=== PATIENT | male | born 1945 | race Caucasian/White ===

== ENCOUNTER 2024-04-10 08:21 | Inpatient (IN) | payer MEDICARE, OTHER ==
[~2024-04-10] VITALS: Ht 190.5 cm; Wt 109.9 kg
--- NOTE | 2024-04-10 08:43 | ED.PDOC ---
HPI Comments 78 year old male SAVANAH presents to the ED with chief complaint of back pain and leg swelling. Patient reports that he has been experiencing worsening back pain for the past 4 weeks along with associated bilateral legs swelling and left leg redness. Patient denies any N/V/D, chest pain, SOB, dizziness, or headache. Time Seen by MD: 08:39 Reviewed Notes: Nurses Notes, Dock Worker Notes, Medications, Allergies Allergies: Coded Allergies: NO KNOWN ALLERGIES (Unverified , 04/10/24) Information Source: Patient Mode of Arrival: EMS Severity: Moderate Timing: Weeks Duration: Since onset Prehospital treatment: None Onset: At Rest Cardiac Risk Factors: HTN PE Risk Factors: None History of: IN Associated Signs and Symptoms: Calf Swelling, Back Pain Past Medical History PAST MEDICAL HISTORY: CHF, HTN, IN Surgical History: Hernia Repair, Pacemaker Family History Family History: Reviewed,noncontributory to illness Social History Smoker: Non-Smoker Alcohol: Denies ETOH Use Drugs: Denies Drug Use Lives In: Home Constitutional: denies: chills, diaphoresis, fatigue, fever, malaise, sweats, weakness, others EENTM: denies: blurred vision, double vision, ear bleeding, ear discharge, ear drainage, ear pain, ear ringing, eye pain, eye redness, hearing loss, mouth pain, mouth swelling, nasal discharge, nose bleeding, nose congestion, nose pain, photophobia, tearing, throat pain, throat swelling, voice changes, others Respiratory: denies: cough, hemoptysis, orthopnea, SOB at rest, shortness of breath, SOB with excertion, stridor, wheezing, others Cardiovascular: reports: edema; denies: chest pain, dizzy spells, diaphoresis, Dyspnea on exertion, irregular heart beat, left arm pain, lightheadedness, palpitations, PND, syncope, others Gastrointestinal: denies: abdomen distended, abdominal pain, blood streaked bowels, constipated, diarrhea, dysphagia, difficulty swallowing, hematemesis, melena, nausea, poor appetite, poor fluid intake, rectal bleeding, rectal pain, vomiting, others Genitourinary: denies: burning, dysuria, flank pain, frequency, hematuria, incontinence, penile discharge, penile sore, pain, testicle pain, testicle swelling, urgency, others Neurological: denies: dizziness, fainting, headache, left sided numbness, left sided weakness, numbness, paresthesia, pre-existing deficit, right sided numbness, right sided weakness, seizure, speech problems, tingling, tremors, weakness, others Musculoskeletal: reports: back pain; denies: gout, joint pain, joint swelling, muscle pain, muscle stiffness, neck pain, others Integumetry: denies: bruises, change in color, change in hair/nails, dryness, laceration, lesions, lumps, rash, wounds, others Allergic/Immunocompromised: denies: Difficulty Healing, Frequent Infections, Hives, Itching, others Hematologic/Lymphatic: denies: anemia, blood clots, easy bleeding, easy bruising, swollen glands, others Endocrine: denies: excessive hunger, excessive sweating, excessive thirst, excessive urination, flushing, intolerance to cold, intolerance to heat, unexplained weight gain, unexplained weight loss, others Psychiatric: denies: anxiety, bipolar disorder, depression, hopeless, panic disorder, schizophrenia, sleepless, suicidal, others All Other Systems: Reviewed and Negative Physical Exam General Appearance: Moderate Distress, Normal HEENT: Normal ENT Inspection, PERRL/EOMI Neck: Full Range of Motion, Non-Tender, Normal, Normal Inspection Respiratory: Chest Non-Tender, Lungs Clear, No Accessory Muscle Use, No Respir atory Distress, Normal Breath Sounds Cardiovascular: No Edema, No JVD, No Murmur, No Gallop, Normal Peripheral Pulses, Regular Rate/Rhythm Breast Exam: Deferred Gastrointestinal: No Organomegaly, Non Tender, No Pulsatile Mass, Normal Bowel Sounds, Soft Genitalia: Deferred Pelvic: Deferred Rectal: Deferred Extremities: No calf tenderness, Normal capillary refill, Non-tender, Pedal edema, Swelling (Bilateral lower extremity) Musculoskeletal : Apperance: Normal Neurologic: Alert, billboard erector II-XII nml as Tested, No Motor Deficits, Normal Affect, Normal Mood, No Sensory Deficits Cerebellar Function: NOT DONE Reflexes: NOT DONE Skin: Dry, Normal Color, Warm Peripheral Pulses: 3+ Radial (R), 3+ Radial (L) Lymphatic: No Adenopathy Was a procedure done? Was a procedure done?: No CP Differential Dx Differential Diagnosis: A-fib, A-Flutter, Angina, Anxiety / Panic Attack, Atrial Dysrhythmia, Electrolyte Disorder X-Ray, Labs, Meds, VS Vital Signs Date Time Temp Pulse Resp B/P (MAP) Pulse Ox O2 Delivery O2 Flow Rate FiO2 04/10/24 12:00 57 20 126/59 (81) 99 04/10/24 11:16 60 19 112/64 (80) 99 04/10/24 10:00 61 20 123/60 (81) 99 04/10/24 09:10 61 20 97 Nasal Cannula* 3 32 04/10/24 09:10 98.1 60 20 119/97 (104) 97 98.1 04/10/24 08:28 75 04/10/24 08:25 98.1 43 16 124/58 (80) 94 Lab Test 04/10/24 11:38 04/10/24 10:34 04/10/24 08:57 Range/Units Troponin I High Sensitivity 12 12 11 </=54 ng/L White Blood Count 6.8 4.4-10.8 10^3/uL Red Blood Count 4.30 L 4.5-5.90 10^6/uL Hemoglobin 11.6 L 13.5-17.5 g/dL Hematocrit 34.6 L 41.0-53.0 % Mean Corpuscular Volume 80.4 80.0-100.0 fL Mean Corpuscular Hemoglobin 26.9 L 28.0-32.0 pg Mean Corpuscular Hemoglobin Concent 33.5 32.0-36.0 g/dL Red Cell Distribution Width 18.3 H 11.8-14.3 % Platelet Count 191 140-450 10^3/uL Mean Platelet Volume 7.4 6.9-10.8 fL Neutrophils (%) (Auto) 77.8 37.0-80.0 % Lymphocytes (%) (Auto) 10.7 10.0-50.0 % Monocytes (%) (Auto) 10.8 0.0-12.0 % Eosinophils (%) (Auto) 0.3 0.0-7.0 % Basophils (%) (Auto) 0.4 0.0-2.0 % Neutrophils # (Auto) 5.3 1.6-8.6 10 ^3/uL Lymphocytes # (Auto) 0.7 0.4-5.4 10 ^3/uL Monocytes # (Auto) 0.7 0-1.3 10 ^3/uL Eosinophils # (Auto) 0 0-0.8 10 ^3/uL Basophils # (Auto) 0 0-0.2 10 ^3/uL Nucleated Red Blood Cells 0.2 % Sodium Level 134 L 136-145 mmol/L Potassium Level 4.0 3.5-5.1 mmol/L Chloride Level 99 98-107 mmol/L Carbon Dioxide Level 28 20-31 mmol/L Anion Gap 7 5-15 Blood Urea Nitrogen 20 9-23 mg/dL Creatinine 0.82 0.700-1.30 mg/dL Glomerular Filtration Rate Calc 89 >90 mL/min BUN/Creatinine Ratio 24.4 H 10.0-20.0 Serum Glucose 96 74-106 mg/dL Calcium Level 9.2 8.7-10.4 mg/dL B-Type Natriuretic Peptide 115.42 0-100 pg/mL Chest XR: FINDINGS: Lines and Tubes: Cardiac pacemaker projects over the right chest wall. Lungs: Diffuse interstitial opacities. Pleura: Trace right pleural effusion. No pneumothorax. Cardiomediastinal contours: Unremarkable Bones: No acute osseous abnormality. IMPRESSION: Findings suggestive of pulmonary vascular congestion. Trace right pleural effusion. Patient alert. Came in because of shortness a breath. Bilateral lower extremity swelling. Was given Lasix pain Chest x-ray reviewed does show congestion. BNP slightly elevated. Possible cellulitis. Echocardiogram. Stress test. Possible need angiogram. WBC within normal limits. Blood pressure within normal limits. EKG reviewed does not show any acute changes. Reviewed his history. Explained to the patient. Continue cardiac monitoring. Images Reviewed?: Images reviewed and evaluated by me Time of 1ST Reevaluation: 09:39 Reevaluation 1ST: Unchanged Patient Education/Counseling: Diagnosis, Treatment Family Education/Counseling: No Family Present Departure 1 Departure Time of Disposition: 13:15 Impression: Primary Impression: CHF (congestive heart failure) Qualified Codes: I50.43 - Acute on chronic combined systolic (congestive) and diastolic (congestive) heart failure Additional Impression: Pneumonitis Disposition: ADMITTED INPATIENT Admit to: Med Surg Condition: Guarded Critical Care Note Critical Care Time?: Yes (90 min-critical care time only) Stability Stability form required: No Heart Score Heart Score: Heart Score Response (Comments) Value History Highly Suspicious 2 EKG Repolarization Disturb 1 Age >65 2 Risk Factors >3 or Hx ASHD 2 Troponin Normal limit 0 Total 7 I personally scribed for HAMMAD HILL MD ([email or web address]) on 04/10/24 at 08:43. Electronically submitted by Gurmeet Del Valle ([email or web address]). I personally scribed for HAMMAD HILL MD ([email or web address]) on 04/10/24 at 08:44. Electronically submitted by Gurmeet Del Valle ([email or web address]). I personally scribed for HAMMAD HILL MD ([email or web address]) on 04/10/24 at 10:30. Electronically submitted by Gurmeet Del Valle ([email or web address]). HAMMAD HILL MD Apr 10, 2024 08:43
[2024-04-10 09:10] VITALS: PULSE 61; RESP 20; O2SAT 97
--- NOTE | 2024-04-10 09:11 | DVH ---
EXAM: XY CHEST PORTABLE Indication:sob Technique: Single frontal view of the chest was obtained Comparison: None FINDINGS: Lines and Tubes: Cardiac pacemaker projects over the right chest wall. Lungs: Diffuse interstitial opacities. Pleura: Trace right pleural effusion. No pneumothorax. Cardiomediastinal contours: Unremarkable Bones: No acute osseous abnormality. IMPRESSION: Findings suggestive of pulmonary vascular congestion. Trace right pleural effusion.
[2024-04-10 09:45] LABS: Basophils # (auto) 0 10 ^3/uL (0-0.2); Eosinophils # (auto) 0 10 ^3/uL (0-0.8); Hemoglobin 11.6 g/dL (13.5-17.5); Lymphocytes # (auto) 0.7 10 ^3/uL (0.4-5.4); Nucleated Red Blood Cells % 0.2 %
[2024-04-10 09:48] LABS: Basophils % (auto) 0.4 % (0.0-2.0); Eosinophils % (auto) 0.3 % (0.0-7.0); Hematocrit 34.6 % (41.0-53.0); Lymphocytes % (auto) 10.7 % (10.0-50.0); Mean Corpuscular Hemoglobin 26.9 pg (28.0-32.0); Mean Corpuscular Hgb Conc. 33.5 g/dL (32.0-36.0); Mean Corpuscular Volume 80.4 fL (80.0-100.0); Monocytes # (auto) 0.7 10 ^3/uL (0-1.3); Monocytes % (auto) 10.8 % (0.0-12.0); Neutrophils # (auto) 5.3 10 ^3/uL (1.6-8.6); Neutrophils % (auto) 77.8 % (37.0-80.0); Platelet Count (auto) 191 10^3/uL (140-450); Red Cell Distribution Width 18.3 % (11.8-14.3); White Blood Cell 6.8 10^3/uL (4.4-10.8)
[2024-04-10 09:49] LABS: Chloride 99 mmol/L (98-107); Sodium 134 mmol/L (136-145)
[2024-04-10 09:50] LABS: Anion Gap 7 (5-15); Calcium 9.2 mg/dL (8.7-10.4); Carbon Dioxide 28 mmol/L (20-31)
[2024-04-10 09:55] LABS: BUN/Creatinine Ratio 24.4 (10.0-20.0); Blood Urea Nitrogen 20 mg/dL (9-23); Glucose 96 mg/dL (74-106)
[2024-04-10] MEDS ORDERED: ONDANSETRON HCL 4 MG/2 ML VIAL IV PRN (13:45)
[2024-04-10] MEDS ORDERED: NITROGLYCERIN 0.4 MG SL TAB SL PRN (13:45)
[2024-04-10] MEDS ORDERED: MORPHINE SULFATE INJ 2 MG/ml SYRG IV PRN (13:45)
[2024-04-10] MEDS ORDERED: METO25TA93 PO (13:48)
[2024-04-10] MEDS ORDERED: RIVA20TA PO (13:48)
[2024-04-10] MEDS ORDERED: CLOP75TA70 PO (13:48)
[2024-04-10] MEDS ORDERED: ATOR10TA52 PO (13:48)
[2024-04-10] MEDS: FUROSEMIDE 40 MG/4 ML VIAL IV ONE (14:15)
[2024-04-10] MEDS: levoFLOXacin 500MG 100 ML IV ONE (14:16)
--- NOTE | 2024-04-10 14:44 | DVH ---
Bilateral lower extremity venous duplex Clinical History: Bilateral lower extremity swelling and redness Comparison: None Technique: Duplex Doppler evaluation of the deep venous systems of both lower extremities from the bilateral com mon femoral veins to the popliteal veins including color Doppler and spectral/pulsed waveform analysi s was performed. Findings: RIGHT SIDE: The common femoral vein demonstrates appropriate compressibility and waveform variability . There is compressibility/patency of the great saphenous vein at the proximal thigh . The femoral vein demonstrates appropriate compressibility and waveform variability . The deep femoral vein demonstrates appropriate compressibility and waveform variability . The popliteal vein demonstrates appropriate compressibility and waveform variability . There is normal compressibility at the tibioperoneal trunk. LEFT SIDE: The common femoral vein demonstrates appropriate compressibility and waveform variability . There is compressibility/patency of the great saphenous vein at the proximal thigh . The femoral vein demonstrates appropriate compressibility and waveform variability . The deep femoral vein demonstrates appropriate compressibility and waveform variability . The popliteal vein demonstrates appropriate compressibility and waveform variability . There is normal compressibility at the tibioperoneal trunk. Impression: No right or left femoropopliteal venous thrombosis.
--- NOTE | 2024-04-10 15:02 | DVHHP2 ---
History of Present Illness Reason for Visit: bilateral lower extremity swelling History of Present Illness 78-year-old male brought in by ambulance presented to the ED with chief complaint of back pain and bilateral lower extremity redness and swelling. Patient reports that he had been experiencing worsening back pain for the last 4 weeks associated with bilateral lower leg swelling +2 pitting edema and left leg redness. Patient states he has discussed the back pain with his primary care provider, who ordered recent imaging, and presented patient with a list of possible plans of care, patient states he does not remember what the plans were, however he states his primary care provider gave him pain medications and they scheduled a follow up appointment. Patient does not have any saddle anesthesia. Lower extremity ultrasound pending. Lasix given. Cardiology consult placed. Patient denies chest pain, headache, dizziness, diaphoresis, shortness of breat h, abdominal pain, no nausea, vomiting, fever, or chills endorsed by the patient. Patient was admitted for further evaluation medical management. Past Medical History CHF, HTN, NC Past Surgical History Hernia Repair, Pacemaker Family History Reviewed noncontributory to the management of this case Smoke: No ALCOHOL: none Drugs: None Lives: with Family Review of Systems Constitutional: No: Fever, Chills, Sweats, Weakness, Malaise, Other Eyes: No: Pain, Vision change, Conjunctivae inflammation, Eyelid inflammation, Other, Redness ENT: No: Ear pain, Ear discharge, Nose pain, Nose discharge, Nose congestion, Mouth pain, Mouth swelling, Throat pain, Throat swelling, Other Respiratory: Shortness of breath; No: Cough, Dry, SOB with excertion, Wheezing, Hemoptysis, Pleuritic Pain, Sputum, Wheezing, Other Cardiovascular: Edema (+2 pitting edema bilateral lower extremities); No: Chest Pain, Palpitations, Orthopnea, Paroxysmal Noc. Dyspnea, Lt Headedness, Other Gastrointestinal: No: Nausea, Vomiting, Abdominal Pain, Diarrhea, Constipation, Melena, Hematochezia, Other Genitourinary: No Dysuria, No Frequency, No Incontinence, No Hematuria, No Retention, No Other Musculoskeletal: leg pain (Left leg pain); No: other, neck pain, shoulder pain, arm pain, back pain, hand pain, foot pain Skin: Other (Redness to left lower extremity); No: Rash, Lesions, Jaundice, Bruising Neurological: No: Weakness, Numbness, Incoordination, Change in speech, Confusion, Seizures, Other Allergies: Coded Allergies: NO KNOWN ALLERGIES (Unverified , 04/10/24) Medications Current Medications Medications Dose Ordered Sig/Thierry Route Start Time Stop Time Status Last Admin Dose Admin Acetaminophen/ Hydrocodone Bitart 1 tab Q4HP PRN PO 04/10/24 13:45 UNV Ondansetron HCl 4 mg Q4HP PRN IV 04/10/24 13:45 UNV Morphine Sulfate 2 mg Q4HPRN PRN IV 04/10/24 13:45 UNV Nitroglycerin 0.4 mg Q5MINP PRN SL 04/10/24 13:45 UNV Morphine Sulfate 2 mg Q30M PRN IV 04/10/24 13:45 UNV Furosemide 20 mg BIDD IV 04/10/24 18:00 UNV Clopidogrel Bisulfate 75 mg DAILY PO 04/11/24 10:00 UNV Rivaroxaban 20 mg DAILY PO 04/11/24 10:00 UNV Atorvastatin Calcium 10 mg HS PO 04/10/24 22:00 UNV Metoprolol Succinate 12.5 mg DAILY PO 04/11/24 10:00 UNV Levofloxacin/ Dextrose 100 ml @ 100 mls/hr DAILY IV 04/11/24 10:00 UNV Potassium Chloride 20 meq DAILY PO 04/11/24 10:00 UNV Exam Vital Signs Vital Signs Date Time Temp Pulse Resp B/P (MAP) Pulse Ox O2 Delivery O2 Flow Rate FiO2 04/10/24 14:15 141/68 04/10/24 12:00 57 20 99 04/10/24 09:10 Nasal Cannula* 3 32 04/10/24 09:10 98.1 98.1 General Appearance: Alert, Oriented X3, Cooperative, No acute distress HEENT: Atraumatic, PERRLA, EOMI, Mucous membr. moist/pink Respiratory: Clear to auscultation, Normal air movement Cardiovascular: Normal S1, Normal S2, No murmurs Abdominal: Normal bowel sounds, Soft, No tenderness, No hepatospenomegaly, No masses Extremities: No clubbing, No cyanosis, No edema, Normal pulses, No tenderness/swelling Skin: No rashes, No breakdown, No significant lesion Neuro: Normal gait, Normal speech, Strength at 5/5 X4 ext, Normal tone, Sensation intact, Cranial nerves 3-12 NL, Reflexes 2+ Psych/Mental Status: Mental status NL, Mood NL Labs/Xrays Labs, imaging and ED notes reviewed Labs Test 04/10/24 11:38 04/10/24 08:57 Range/Units Troponin I High Sensitivity 12 </=54 ng/L White Blood Count 6.8 4.4-10.8 10^3/uL Red Blood Count 4.30 L 4.5-5.90 10^6/uL Hemoglobin 11.6 L 13.5-17.5 g/dL Hematocrit 34.6 L 41.0-53.0 % Mean Corpuscular Volume 80.4 80.0-100.0 fL Mean Corpuscular Hemoglobin 26.9 L 28.0-32.0 pg Mean Corpuscular Hemoglobin Concent 33.5 32.0-36.0 g/dL Red Cell Distribution Width 18.3 H 11.8-14.3 % Platelet Count 191 140-450 10^3/uL Mean Platelet Volume 7.4 6.9-10.8 fL Neutrophils (%) (Auto) 77.8 37.0-80.0 % Lymphocytes (%) (Auto) 10.7 10.0-50.0 % Monocytes (%) (Auto) 10.8 0.0-12.0 % Eosinophils (%) (Auto) 0.3 0.0-7.0 % Basophils (%) (Auto) 0.4 0.0-2.0 % Neutrophils # (Auto) 5.3 1.6-8.6 10 ^3/uL Lymphocytes # (Auto) 0.7 0.4-5.4 10 ^3/uL Monocytes # (Auto) 0.7 0-1.3 10 ^3/uL Eosinophils # (Auto) 0 0-0.8 10 ^3/uL Basophils # (Auto) 0 0-0.2 10 ^3/uL Nucleated Red Blood Cells 0.2 % Sodium Level 134 L 136-145 mmol/L Potassium Level 4.0 3.5-5.1 mmol/L Chloride Level 99 98-107 mmol/L Carbon Dioxide Level 28 20-31 mmol/L Anion Gap 7 5-15 Blood Urea Nitrogen 20 9-23 mg/dL Creatinine 0.82 0.700-1.30 mg/dL Glomerular Filtration Rate Calc 89 >90 mL/min BUN/Creatinine Ratio 24.4 H 10.0-20.0 Serum Glucose 96 74-106 mg/dL Calcium Level 9.2 8.7-10.4 mg/dL B-Type Natriuretic Peptide 115.42 0-100 pg/mL Assessment/Plan Assessment/Plan CHF exacerbation Admit to telemetry Lasix given Serial troponins 11, 12, 12 BNP 115 Monitor fluid balance/urine output Monitor a.m. labs Left lower extremity cellulitis Started on antibiotics Acute hypoxic respiratory failure On 2 L nasal cannula Supplemental oxygen Titrate to keep greater than 92% SpO2 Chest x-ray showed pulmonary vascular congestion Chronic back pain Pain medications p.r.n. Chronic AFib Continue home medications Chronic hypertension Continue home meds FEN/PPX GI prophylaxis not indicated VTE prophylaxis-on Plavix and Xarelto Cardiac diet Plan discussed with: Patient My Orders Orders - JOSE OG Procedure Category Date Status Time Admit ADMIT 04/10/24 Transmitted 13:40 Code Status CODE 04/10/24 Transmitted 13:40 Vital Signs [facility] 04/10/24 In Process 13:40 Review Orders With [facility] 04/10/24 In Process Adm. 13:40 Bedside Commode [facility] 04/10/24 In Process 13:40 Notify Of Changes [facility] 04/10/24 In Process From Base 13:40 Advance Directive [facility] 04/10/24 In Process 13:40 Basic Metabolic Panel LAB 04/11/24 Verified 04:00 Complete Blood Count LAB 04/11/24 Verified 04:00 Patient Condition ORDERS 04/10/24 Transmitted 13:40 Allergies [facility] 04/10/24 In Process 13:40 Hydrocodone-Acet [facility] 04/10/24 Logged 5/325mg Tab ([place] 13:45 Ondansetron Hcl PHA 04/10/24 Logged (Zofran) 13:45 Morphine Sulfate PHA 04/10/24 Logged Injection 13:45 Cardiac DIET 04/10/24 Transmitted Diet-2gna,Lofat,Lochol Dinner Melatonin (Melatonin) [facility] 04/10/24 Logged 22:00 Nitroglycerin PHA 04/10/24 Logged Sublingual (Ntrostat 13:45 Morphine Sulfate PHA 04/10/24 Logged Injection 13:45 Stat Ekg For Chest [facility] 04/10/24 In Process Pain 13:40 Notify Of Changes [facility] 04/10/24 In Process From Base 13:40 Ice Cream Truck Driver For [facility] 04/10/24 In Process 24 Hours 13:40 Emergency Dysrhythmia [facility] 04/10/24 In Process Protocol 13:40 Rhythm Strips Once [facility] 04/10/24 In Process Every Shift 13:40 Oxygen By Nasal RT 04/10/24 Transmitted Cannula 13:40 Furosemide Injection [facility] 04/10/24 Logged (Lasix Injection) 18:00 Clopidogrel Bisulfate [facility] 04/11/24 Logged (Plavix) 10:00 Rivaroxaban Tablet [facility] 04/11/24 Logged (Xarelto Tablet) 10:00 Atorvastatin (Lipitor) [facility] 04/10/24 Logged 22:00 Metoprolol Xl [facility] 04/11/24 Logged Succinate (Toprol Xl) 10:00 Levofloxacin 500mg [facility] 04/11/24 Logged (Levaquin 500mg/ 100m 10:00 Potassium Er Tablet [facility] 04/11/24 Logged (Klor-Con Tablet) 10:00 Bilat Lower Dvt 04/10/24 Resulted 13:55 Date of Service: Apr 10, 2024 Billing Provider: JOSE OG Common Visit Codes: [id number] INP/OBS CARE (HIGH) JOSE OG Apr 10, 2024 15:02
[2024-04-10 15:20] LABS: Urine Bacteria None Seen /hpf (None Seen)
[2024-04-10] MEDS: MORPHINE SULFATE INJ 2 MG/ml SYRG IV PRN (15:23)
[2024-04-10 15:36] LABS: Urine Blood 1+ /uL (Negative); Urine Clarity Clear (Clear); Urine Color Yellow (Yellow); Urine Mucus FEW (None Seen); Urine Protein, UAD Negative (Negative); Urine Specific Gravity 1.015 (1.001-1.035); Urine Urobilinogen 4 mg/dL (Negative); Urine WBC 1 /hpf (0 - 3)
[2024-04-10] MEDS: HYDROcodone-ACET 5/325MG TAB PO PRN (16:02)
[2024-04-10] MEDS: FUROSEMIDE 20 MG/2 ML VIAL IV SCH (18:08)
--- NOTE | 2024-04-10 19:00 | ECG ---
[facility] Test Date: 2024-04-10 Test Time: 08:26:24 Pat Name: RADAMES NOLAND Department: ED Room: [address] [place] [address] Gender: M Chaplaincy: MAHI : 1945 Requested By: HAMMAD HILL Order Number: [id number] Reading MD: Measurements Intervals [place] Rate: 60 P: 196 WV: 193 QRS: 234 QRSD: 167 T: 171 QT: 517 QTc: 517 Interpretive Statements Atrial-sensed ventricular-paced rhythm No further analysis attempted due to paced rhythm Please click the below link to view image of tracing.
[2024-04-10] MEDS: MELATONIN 5 MG TAB PO ONE (22:00)
[2024-04-10 22:27] VITALS: BP 106/50; PULSE 103; PULSE 90; RESP 18; TEMP 98.3; O2SAT 93
[2024-04-10] MEDS ORDERED: FURO40TA4 PO (23:07)
[2024-04-10] MEDS: ATORVASTATIN 20 MG TAB PO SCH (23:14)
[2024-04-11] VITALS (7 sets, daily range): BP systolic 89–109; BP diastolic 50–59; PULSE 60–93; RESP 18–20; TEMP 97.2–98.9; O2SAT 91–96
[2024-04-11 06:38] LABS: Basophils # (auto) 0 10 ^3/uL (0-0.2); Basophils % (auto) 0.4 % (0.0-2.0); Eosinophils # (auto) 0 10 ^3/uL (0-0.8); Eosinophils % (auto) 0.3 % (0.0-7.0); Hemoglobin 10.9 g/dL (13.5-17.5); Lymphocytes # (auto) 0.7 10 ^3/uL (0.4-5.4)
[2024-04-11 06:40] LABS: Hematocrit 31.7 % (41.0-53.0); Lymphocytes % (auto) 10.3 % (10.0-50.0); Mean Corpuscular Hemoglobin 27.3 pg (28.0-32.0); Mean Corpuscular Hgb Conc. 34.4 g/dL (32.0-36.0); Mean Corpuscular Volume 79.2 fL (80.0-100.0); Monocytes # (auto) 0.9 10 ^3/uL (0-1.3); Monocytes % (auto) 13.6 % (0.0-12.0); Neutrophils # (auto) 5.1 10 ^3/uL (1.6-8.6); Neutrophils % (auto) 75.4 % (37.0-80.0); Platelet Count (auto) 173 10^3/uL (140-450); Red Blood Cells 4.01 10^6/uL (4.5-5.90); Red Cell Distribution Width 18.4 % (11.8-14.3); White Blood Cell 6.8 10^3/uL (4.4-10.8)
[2024-04-11 06:46] LABS: Anion Gap 7 (5-15); Carbon Dioxide 28 mmol/L (20-31); Chloride 99 mmol/L (98-107); Potassium 3.5 mmol/L (3.5-5.1); Sodium 134 mmol/L (136-145)
[2024-04-11 06:52] LABS: BUN/Creatinine Ratio 19.8 (10.0-20.0); Blood Urea Nitrogen 19 mg/dL (9-23); Glucose 117 mg/dL (74-106)
[2024-04-11] MEDS: RIVAROXABAN 20 MG TAB PO SCH (10:14)
[2024-04-11] MEDS: levoFLOXacin 500MG 100 ML IV SCH (10:14)
[2024-04-11] MEDS: CLOPIDOGREL BISULFATE 75 MG TAB PO SCH (10:14)
[2024-04-11] MEDS: POTASSIUM CHL 20 Meq TABLET PO SCH (10:15)
[2024-04-11] MEDS: METOPROLOL SUCCINATE XL 50 MG TAB PO SCH (10:16)
--- NOTE | 2024-04-11 17:30 | DVHPN2 ---
Subjective concerned about redness around his ankle- started after mild trauma 3 weeks back Changes from previous H/P or p: No Changes Eyes: No Pain, No Vision change, No Conjunctivae inflammation, No Eyelid inflammation, No Other, No Redness ENT: No Ear pain, No Ear discharge, No Nose pain, No Nose discharge, No Nose congestion, No Mouth pain, No Mouth swelling, No Throat pain, No Throat swelling, No Other Cardiovascular: No Chest Pain, No Palpitations, No Orthopnea, No Paroxysmal Noc. Dyspnea; Edema (+2 pitting edema bilateral lower extremities); No Lt Headedness, No Other Respiratory: No Cough, No Dry; Shortness of breath; No SOB with excertion, No Wheezing, No Hemoptysis, No Pleuritic Pain, No Sputum, No Other Gastrointestinal: No Nausea, No Vomiting, No Abdominal Pain, No Diarrhea, No Constipation, No Melena, No Hematochezia, No Other Genitourinary: No Dysuria, No Frequency, No Incontinence, No Hematuria, No Retention, No Other Musculoskeletal: No other, No neck pain, No shoulder pain, No arm pain, No back pain, No hand pain; leg pain (Left leg pain); No foot pain Skin: No Rash, No Lesions, No Jaundice, No Bruising; Other (Redness to left lower extremity) Objective Vitals Vital Signs Date Time Temp Pulse Resp B/P (MAP) Pulse Ox O2 Delivery O2 Flow Rate FiO2 04/11/24 12:00 97.2 68 20 109/54 (72) 95 97.2 04/11/24 08:10 Nasal Cannula* 3 32 Intake/Output Intake and Output 04/11/24 07:00 Intake Total 0 ml Output Total 0 ml Balance 0 ml Intake Oral 0 ml Output Urine Total 0 ml General Appearance: Alert, Oriented X3 HEENT: PERRLA Lungs: Clear to auscultation, Other Cardiovascular: Regular rate, Normal S1, Normal S2 Abdomen: Normal bowel sounds, No hepatospenomegaly Musculoskeletal: Normal sensory function, Normal motor function Extremities: Other (mild edema lower extremities/mild redness around rt ankle) Skin: Breakdown Medications Current Medications Medications Dose Ordered Sig/Thierry Route Start Time Stop Time Status Last Admin Dose Admin Acetaminophen/ Hydrocodone Bitart 1 tab Q4HP PRN PO 04/10/24 13:45 04/10/24 16:02 1 TAB Ondansetron HCl 4 mg Q4HP PRN IV 04/10/24 13:45 Morphine Sulfate 2 mg Q4HPRN PRN IV 04/10/24 13:45 04/10/24 15:23 2 MG Nitroglycerin 0.4 mg Q5MINP PRN SL 04/10/24 13:45 Morphine Sulfate 2 mg Q30M PRN IV 04/10/24 13:45 Furosemide 20 mg BIDD IV 04/10/24 18:00 04/11/24 05:06 20 MG Clopidogrel Bisulfate 75 mg DAILY PO 04/11/24 10:00 04/11/24 10:14 75 MG Rivaroxaban 20 mg DAILY PO 04/11/24 10:00 04/11/24 10:14 20 MG Atorvastatin Calcium 10 mg HS PO 04/10/24 22:00 04/10/24 23:14 10 MG Metoprolol Succinate 12.5 mg DAILY PO 04/11/24 10:00 04/11/24 10:16 12.5 MG Levofloxacin/ Dextrose 100 ml @ 100 mls/hr DAILY IV 04/11/24 10:00 04/11/24 10:14 100 MLS/HR Potassium Chloride 20 meq DAILY PO 04/11/24 10:00 04/11/24 10:15 20 MEQ Laboratory Results Laboratory Tests 04/11/24 05:40 Chemistry Test 04/11/24 05:40 Calcium Level 9.0 mg/dL (8.7-10.4) Urinalysis Test 04/10/24 13:20 Urine Color Yellow (Yellow) Urine Clarity Clear (Clear) Urine pH 5.0 (5.0-9.0) Urine Specific [place] 1.015 (1.001-1.035) Urine Protein Negative (Negative) Urine Ketones Trace (Negative) Urine Blood 1+ /uL (Negative) H Urine Nitrite Negative (Negative) Urine Bilirubin Negative (Negative) Urine Urobilinogen 4 mg/dL (Negative) H Urine Leukocyte Esterase Negative /uL (Negative) Urine RBC 7 /hpf (0 - 3) Urine WBC 1 /hpf (0 - 3) Urine Squamous Epithelial Cells Few /hpf (<5) Urine Bacteria None seen /hpf (None Seen) Urine Mucus Few (None Seen) Urine Glucose Normal mg/dL (Normal) Assessment/Plan Assessment/Plan chf secondary to diastolic dysfn cellulitis lt lower extremity cad- stable custodial use of anticoagulation- pt not clear why but recommended and rx by 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
--- NOTE | 2024-04-11 17:32 | MEDREC ---
[facility] Intervention Section I [facility] Intervention: Review courses of therapy (PATIENT HAS QT PROLONGATION (QTc 517 ON 04/10). FLUOROQUINOLONES (LEVOFLOXACIN) AND MACROLIDES CAN PROLONG THE QT INTERVAL EVEN FURTHER. PLEASE CONSIDER SWITCHING ANTIBIOTIC DEPENDS ON INFECTION TYPES) BILLY KUMAR PHA Apr 11, 2024 17:32
--- NOTE | 2024-04-11 18:14 | DVH ---
CLINICAL INDICATION: trauma at home 3 weeks back TECHNIQUE: 2 radiographic views of the left ankle were obtained. Comparison: None FINDINGS/IMPRESSION: There is no evidence of acute fracture or dislocation. Poor visualization of the talocalcaneal joint. Can not exclude fusion. The alignment is anatomical. There is no radiopaque foreign body.
[2024-04-12 06:59] LABS: Basophils # (auto) 0 10 ^3/uL (0-0.2); Eosinophils # (auto) 0.1 10 ^3/uL (0-0.8); Hemoglobin 10.7 g/dL (13.5-17.5); Lymphocytes # (auto) 0.7 10 ^3/uL (0.4-5.4); Monocytes # (auto) 0.7 10 ^3/uL (0-1.3); Neutrophils # (auto) 4.3 10 ^3/uL (1.6-8.6); Nucleated Red Blood Cells % 0.1 %
[2024-04-12 07:01] LABS: Basophils % (auto) 0.5 % (0.0-2.0); Eosinophils % (auto) 1.1 % (0.0-7.0); Lymphocytes % (auto) 11.4 % (10.0-50.0); Mean Corpuscular Hemoglobin 26.6 pg (28.0-32.0); Mean Corpuscular Hgb Conc. 33.4 g/dL (32.0-36.0); Mean Corpuscular Volume 79.7 fL (80.0-100.0); Monocytes % (auto) 12.4 % (0.0-12.0); Neutrophils % (auto) 74.6 % (37.0-80.0); Platelet Count (auto) 181 10^3/uL (140-450); Red Blood Cells 4.02 10^6/uL (4.5-5.90); Red Cell Distribution Width 18.3 % (11.8-14.3); White Blood Cell 5.7 10^3/uL (4.4-10.8)
[2024-04-12 07:08] LABS: Chloride 98 mmol/L (98-107); Potassium 3.6 mmol/L (3.5-5.1); Sodium 134 mmol/L (136-145)
[2024-04-12 07:09] LABS: Anion Gap 6 (5-15); Calcium 9.1 mg/dL (8.7-10.4); Carbon Dioxide 30 mmol/L (20-31)
[2024-04-12 07:14] LABS: BUN/Creatinine Ratio 24.7 (10.0-20.0); Blood Urea Nitrogen 20 mg/dL (9-23); Glucose 114 mg/dL (74-106)
--- NOTE | 2024-04-12 07:23 | DVH ---
CLINICAL INFORMATION: 78 years old, Male; congestive heart failure. TECHNIQUE: Single AP portable chest radiograph was obtained. COMPARISON: XY CHEST PORTABLE on DOS: 04/10/24 FINDINGS: Small right pleural effusion with overlying atelectasis and/or consolidation, increased compared to t he prior exam. Bilateral perihilar interstitial opacities and prominence of the pulmonary vasculature are increased. Unchanged cardiomegaly. No pneumothorax. No other significant interval change. IMPRESSION: 1. Worsening findings consistent with pulmonary vascular congestion / interstitial pulmonary edema as described above. 2. Worsening small right pleural effusion with overlying atelectasis and/or consolidation.
[2024-04-12 07:29] LABS: Erythrocyte Sedimentation Rate 79 mm/hr (0-20)
[2024-04-12 08:00] VITALS: PULSE 64; PULSE 70
[2024-04-12 09:00] VITALS: BP 100/55; PULSE 70; RESP 16; TEMP 97.5; O2SAT 94
[2024-04-12 13:00] VITALS: BP 100/54; PULSE 73; RESP 17; TEMP 98.1; O2SAT 96
--- NOTE | 2024-04-12 16:11 | DVHDS2 ---
Discharge Summary Date of Admission Apr 10, 2024 at 13:40 Date of Discharge: Apr 12, 2024 Admitting Diagnosis cellulitis lt leg acute on chronic diastolic chf Wounds: lt leg closed superficial blister/from recent trauma/longterm anticoagulation dry guaze dressing applied Labs/Diagnostic Data: Laboratory Results Test 04/12/24 06:17 04/10/24 13:20 04/10/24 11:38 04/10/24 08:57 White Blood Count 5.7 10^3/uL (4.4-10.8) Red Blood Count 4.02 10^6/uL (4.5-5.90) Hemoglobin 10.7 g/dL (13.5-17.5) Hematocrit 32.0 % (41.0-53.0) Mean Corpuscular Volume 79.7 fL (80.0-100.0) Mean Corpuscular Hemoglobin 26.6 pg (28.0-32.0) Mean Corpuscular Hemoglobin Concent 33.4 g/dL (32.0-36.0) Red Cell Distribution Width 18.3 % (11.8-14.3) Platelet Count 181 10^3/uL (140-450) Mean Platelet Volume 7.7 fL (6.9-10.8) Neutrophils (%) (Auto) 74.6 % (37.0-80.0) Lymphocytes (%) (Auto) 11.4 % (10.0-50.0) Monocytes (%) (Auto) 12.4 % (0.0-12.0) Eosinophils (%) (Auto) 1.1 % (0.0-7.0) Basophils (%) (Auto) 0.5 % (0.0-2.0) Neutrophils # (Auto) 4.3 10 ^3/uL (1.6-8.6) Lymphocytes # (Auto) 0.7 10 ^3/uL (0.4-5.4) Monocytes # (Auto) 0.7 10 ^3/uL (0-1.3) Eosinophils # (Auto) 0.1 10 ^3/uL (0-0.8) Basophils # (Auto) 0 10 ^3/uL (0-0.2) Nucleated Red Blood Cells 0.1 % Erythrocyte Sedimentation Rate 79 mm/hr (0-20) Sodium Level 134 mmol/L (136-145) Potassium Level 3.6 mmol/L (3.5-5.1) Chloride Level 98 mmol/L (98-107) Carbon Dioxide Level 30 mmol/L (20-31) Anion Gap 6 (5-15) Blood Urea Nitrogen 20 mg/dL (9-23) Creatinine 0.81 mg/dL (0.700-1.30) Glomerular Filtration Rate Calc 90 mL/min (>90) BUN/Creatinine Ratio 24.7 (10.0-20.0) Serum Glucose 114 mg/dL (74-106) Calcium Level 9.1 mg/dL (8.7-10.4) Urine Color Yellow (Yellow) Urine Clarity Clear (Clear) Urine pH 5.0 (5.0-9.0) Urine Specific [place] 1.015 (1.001-1.035) Urine Protein Negative (Negative) Urine Ketones Trace (Negative) Urine Blood 1+ /uL (Negative) Urine Nitrite Negative (Negative) Urine Bilirubin Negative (Negative) Urine Urobilinogen 4 mg/dL (Negative) Urine Leukocyte Esterase Negative /uL (Negative) Urine RBC 7 /hpf (0 - 3) Urine WBC 1 /hpf (0 - 3) Urine Squamous Epithelial Cells Few /hpf (<5) Urine Bacteria None seen /hpf (None Seen) Urine Mucus Few (None Seen) Urine Glucose Normal mg/dL (Normal) Troponin I High Sensitivity 12 ng/L (</=54) B-Type Natriuretic Peptide 115.42 pg/mL (0-100) Other Laboratory Tests 04/12/24 06:17 Brief Hx & Hospital Course: pt was admitted for chf and cellulitis/pt was treated for both and pt condition improved and pt requested to have echo done as op and f/u with his primary . Consults/Reason for consult nil Operations or Procedures nil Condition at Discharge: Fair Final Diagnosis/Problems List acute on chronic diastolic chf- better pt stated will have echo as op thru his skiver heel tap-had echo 01/17 traumatic blister lt lower leg cellulitis left leg paroxysmal atrial fibrillation htn Discharge Disposition: Home Discharge Instruct/Medications Diet: Cardiac 2g Na,low cholest Diet comment: low salt diet- educated Activity: Light activity Follow Up/Referral: pcp in 1-2 weeks Medications: resume home medications as before has potassium at home(not on reconcile) advised to make sure takes potassium with lasix daily-updated one new rx for antibiotoic sent to pharmacy doxycycline 100 mg twice daily in full stomach for 5 days then stop Discharge Statement: "Patient was advised to return to the ER or call 911 if any headaches, dizziness, shortness of breath, chest pain, abdominal pain, bleeding, fevers, or worsening of medical condition. Patient was counseled about treatment plan, medications, possible side effects, patientverbalized understanding. All questions were answered to the best of my ability. This discharge took greater then 30 minutes in planning, reviewing documentation, counseling the patient, and discussing with other team members." DME: Diagnosis: nil resting pulse ox 93 % on day of discharge ASSESSMENT ASSESSMENT Assessment acute on chronic diastolic chf- better pt stated will have echo as op thru his skiver heel tap-had echo 01/17 traumatic blister lt lower leg cellulitis left leg paroxysmal atrial fibrillation htn Date of Service: Apr 12, 2024 Billing Provider: CLAUDIO KIRKLAND MD Common Visit Codes: 04060-EPZ/OBS DISCH DAY >30min CLAUDIO KIRKLAND MD Apr 12, 2024 16:11
[2024-04-12] MEDS ORDERED: DOXY-286 PO (16:13)
[2024-04-12 17:00] VITALS: BP 122/64; PULSE 92; RESP 18; TEMP 97.4; O2SAT 93
[2024-04-12 17:33] VITALS: BP 122/64; PULSE 92; RESP 18; TEMP 97.4; O2SAT 93
--- NOTE | 2024-04-13 14:09 | ECG ---
[facility] Test Date: 2024-04-10 Test Time: 08:27:01 Pat Name: RADAMES NOLAND Department: ED Room: 0290T A Gender: M Rn Primary Care: MAHI : 1945 Requested By: HAMMAD HILL Order Number: [id number] Reading MD: Measurements Intervals [place] Rate: 75 P: 0 RI: 0 QRS: 23 QRSD: 98 T: -60 QT: 478 QTc: 534 Interpretive Statements Afib/flut and V-paced complexes No further rhythm analysis attempted due to paced rhythm Nonspecific repol abnormality, diffuse leads Prolonged QT interval Please click the below link to view image of tracing.
== END 2024-04-12 18:20 | disposition home or self-care (01) | DRG 602 ==
LOC: EDBD 08:21 → ER 08:21 → TELE 13:40 → TELE-WESTW 21:50
PROVIDERS: ADMIT Registered Nurse General Practice; ATTEND Registered Nurse General Practice
DX: L03.116 Cellulitis of left lower limb (principal); I50.33 Acute on chronic diastolic (congestive) heart failure; J96.01 Acute respiratory failure with hypoxia; I11.0 Hypertensive heart disease with heart failure; J98.4 Other disorders of lung; G89.29 Other chronic pain; I25.10 Atherosclerotic heart disease of native coronary artery without angina pectoris; I48.0 Paroxysmal atrial fibrillation; Z79.01 Long term (current) use of anticoagulants; Z79.899 Other long term (current) drug therapy
CPT/HCPCS: 36415; 71045; 73600; 80048; 81001; 83880; 84484; 85025; 85652; 93005; 93970; 96365; 96375; 96376; 97163; 99291; 99292; G0378; J1956